=== PATIENT | female | born 1955 | race American Indian/Alaskan Native ===

== ENCOUNTER 2021-04-12 10:23 | Emergency (ER) | payer OTHER ==
[2021-04-12] MEDS ORDERED: SODIUM CHLORIDE 0.9% 1000 ML 1,000 ML IV ONE (11:19)
--- NOTE | 2021-04-12 11:21 | Emergency Department Report ---
- General Chief complaint: Weakness Stated complaint: INVOLUNTARY MOVEMENTS Time Seen by Provider: 04/12/21 11:07 Source: patient, EMS Mode of arrival: Stretcher Limitations: No Limitations - History of Present Illness Initial comments: 65-year-old female with history of hypertension hyperlipidemia brought in by EMS complaining of new onset symptoms when she woke up this morning. She reports that since waking up this morning she had severe lightheadedness and dizziness with disorientation and involuntary shaking of her head and extremities. Her last known well time was when she went to sleep at approximately 4 AM. During this episode she also felt extremely anxious. She denies room spinning dizziness however. She does report that she felt off balance. EMS reported t hat upon arrival, the patient's heart rate was in the 130s in sinus rhythm. Improved to 118 and then 81 once she arrived here in the emergency department. She says she has had episodes like this in the past and was diagnosed with panic attack. However, she reports that she feels better now but cannot seem to control her shaking/jerking movements of her head and extremities. She still feels slightly lightheaded and disoriented. She denies ever losing consciousness or hitting her head. She denies any fever/chills, headache, vision changes, neck pain, back pain, chest pain, cough, lower extremity pain/swelling, sensory changes, focal weakness, abdominal pain, nausea/vomiting, dysuria, or any other complaints. She denies use of any illicit substances and says her only medications are for blood pressure and hyperlipidemia. She states that she used to drink alcohol but has not had any alcohol in the last 2 months. - Related Data Previous Rx's Medication Instructions Recorded Last Taken Type Lipitor 40 mg PO DAILY #30 04/12/21 Unknown Rx Meclizine [Antivert] 12.5 mg PO BID PRN 8 Days #16 04/12/21 Unknown Rx tablet amLODIPine 10 mg PO DAILY #30 04/12/21 Unknown Rx Allergies Allergy/AdvReac Type Severity Reaction Status Date / Time No Known Allergies Allergy Verified 04/12/21 10:50 ED Review of Systems ROS: Stated complaint: INVOLUNTARY MOVEMENTS Other details as noted in HPI Constitutional: denies: chills, fever ENT: denies: ear pain, throat pain, congestion Respiratory: shortness of breath (initially but resolved). denies: cough, orthopnea Cardiovascular: denies: chest pain, syncope Gastrointestinal: denies: abdominal pain, nausea, vomiting Genitourinary: denies: dysuria, frequency Musculoskeletal: denies: back pain, myalgia Skin: denies: rash Neurological: confusion, other (feeling of being off-balance and dizzy). denies: headache, weakness, numbness Psychiatric: anxiety ED Past Medical Hx - Past Medical History Previous Medical History?: Yes Hx Heart Attack/AMI: Yes Additional medical history: Hyperlipidemia - Surgical History Past Surgical History?: Yes Additional Surgical History: hysterectomy - Social History Smoking Status: Never Smoker - Medications Home Medications: Home Medications Medication Instructions Recorded Confirmed Last Taken Type Lipitor 40 mg PO DAILY #30 04/12/21 Unknown Rx Meclizine [Antivert] 12.5 mg PO BID PRN 8 Days #16 04/12/21 Unknown Rx tablet amLODIPine 10 mg PO DAILY #30 04/12/21 Unknown Rx ED Physical Exam - General Limitations: No Limitations - Other Other exam information: GENERAL: Well developed and well nourished. No acute distress HEENT: Normocephalic. No obvious signs of trauma. Dry mucous membranes. EYES: Extraocular movements are intact. Pupils are equal round and reactive to light bilaterally NECK: Supple. Trachea is midline. LUNGS: Nonlabored breathing. Equal chest rise bilaterally. Clear to auscultation bilaterally. HEART/CARDIOVASCULAR: Regular rate and rhythm. No murmurs or rubs. VASCULAR: Cap refill < 2 seconds. No significant lower extremity edema ABDOMEN: Abdomen is soft and nondistended. There is no significant tenderness, guarding or rebound. SKIN: Skin is warm and dry NEURO: Patient is awake, alert, and oriented. She is seen involving her head and with jerking/shaking of her extremities particularly the bilateral upper extremities. 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 Normal motor and sensory exam throughout. Normal speech. There is significant dysmetria noted on kaqhip-utyl-jkcidy bilaterally. Normal lghm-wi-nsxg bilaterally. NIH stroke scale score 6 MUSCULOSKELETAL: No obvious deformities. No significant tenderness. Normal ROM throughout. BACK/SPINE: No midline tenderness or step-offs of the C/T/L spine. - Assessment Assessment Interval: Baseline - Level of Consciousness 1a. Level of Consciousness: alert/keenly responsive - LOC Questions 1b. LOC Questions: answers both correctly - LOC Command 1c. LOC Commands: performs tasks correctly - Best Gaze 2. Best Gaze: normal - Visual 3. Visual: no visual loss - Facial Palsy 4. Facial Palsy: normal symmetrical movement - Motor Arm 5a. Motor Arm Left: no drift 5b. Motor Arm Right: no drift - Motor Leg 6a. Motor Leg Left: no drift 6b. Motor Leg Right: no movement - Limb Ataxia 7. Limb Ataxia: present 2 limbs - Sensory 8. Sensory: normal - Best Language 9. Best Language: no aphasia - Dysarthria 10. Dysarthria: normal - Extinction and Inattention 11. Extinction/Inattention: no abnormality - Scoring Total Score: 6 Stroke Severity: Moderate Stroke ED Course Vital Signs 04/12/21 04/12/21 04/12/21 10:58 11:01 11:15 Temperature 98.2 F Pulse Rate 81 96 H Respiratory 15 18 Rate Blood Pressure 127/78 127/78 O2 Sat by Pulse 98 96 99 Oximetry 04/12/21 04/12/21 04/12/21 12:07 12:15 12:31 Temperature Pulse Rate 101 H 86 90 Respiratory 18 17 22 Rate Blood Pressure 132/81 132/81 137/74 O2 Sat by Pulse 99 100 99 Oximetry 04/12/21 04/12/21 12:45 12:46 Temperature Pulse Rate 98 H 86 Respiratory 19 Rate Blood Pressure 127/78 O2 Sat by Pulse 97 Oximetry ED Medical Decision Making - Lab Data Result diagrams: 04/12/21 11:59 04/12/21 11:59 Lab Results 04/12/21 04/12/21 04/12/21 Range/Units 11:16 11:59 11:59 WBC 4.9 (4.5-11.0) K/mm3 RBC 4.34 (3.65-5.03) M/mm3 Hgb 12.6 (10.1-14.3) gm/dl Hct 37.1 (30.3-42.9) % MCV 86 (79-97) fl MCH 29 (28-32) pg MCHC 34 (30-34) % RDW 14.4 (13.2-15.2) % Plt Count 301 (140-440) K/mm3 Lymph % (Auto) 30.3 (13.4-35.0) % [place] % (Auto) 8.2 H (0.0-7.3) % Eos % (Auto) 1.6 (0.0-4.3) % Baso % (Auto) 1.0 (0.0-1.8) % Lymph # (Auto) 1.5 (1.2-5.4) K/mm3 [place] # (Auto) 0.4 (0.0-0.8) K/mm3 Eos # (Auto) 0.1 (0.0-0.4) K/mm3 Baso # (Auto) 0.0 (0.0-0.1) K/mm3 Seg Neutrophils % 58.9 (40.0-70.0) % Seg Neutrophils # 2.9 (1.8-7.7) K/mm3 PT 12.4 (12.2-14.9) Sec. INR 0.88 (0.87-1.13) APTT 27.8 (24.2-36.6) Sec. Thrombin Time 17.8 (15.1-19.6) Sec. Sodium (137-145) mmol/L Potassium (3.6-5.0) mmol/L Chloride (98-107) mmol/L Carbon Dioxide (22-30) mmol/L Anion Gap mmol/L BUN (7-17) mg/dL Creatinine (0.6-1.2) mg/dL Estimated GFR ml/min BUN/Creatinine Ratio % Glucose (65-100) mg/dL POC Glucose 106 H (70-105) mg/dL Calcium (8.4-10.2) mg/dL Total Bilirubin (0.1-1.2) mg/dL AST (5-40) units/L ALT (7-56) units/L Alkaline Phosphatase (35-129) units/L Ammonia (25-60) umol/L Total Creatine Kinase (30-135) units/L CK-MB (CK-2) (0.0-4.0) ng/mL CK-MB (CK-2) Rel Index (0-4) Troponin T (0.00-0.029) ng/mL Total Protein (6.3-8.2) g/dL Albumin (3.9-5) g/dL Albumin/Globulin Ratio % Urine Color (Yellow) Urine Turbidity (Clear) Urine pH (5.0-7.0) Ur Specific [place] (1.003-1.030) Urine Protein (Negative) mg/dL Urine Glucose (UA) (Negative) mg/dL Urine Ketones (Negative) mg/dL Urine Blood (Negative) Urine Nitrite (Negative) Urine Bilirubin (Negative) Urine Urobilinogen (<2.0) mg/dL Ur Leukocyte Esterase (Negative) Urine WBC (Auto) (0.0-6.0) /HPF Urine RBC (Auto) (0.0-6.0) /HPF U Epithel Cells (Auto) (0-13.0) /HPF Urine Opiates Screen Urine Methadone Screen Ur Barbiturates Screen Ur Phencyclidine Scrn Ur Amphetamines Screen U Benzodiazepines Scrn Urine Cocaine Screen U Marijuana (THC) Screen Drugs of Abuse Note Plasma/Serum Alcohol (0-0.07) % 04/12/21 04/12/21 04/12/21 Range/Units 11:59 11:59 11:59 WBC (4.5-11.0) K/mm3 RBC (3.65-5.03) M/mm3 Hgb (10.1-14.3) gm/dl Hct (30.3-42.9) % MCV (79-97) fl MCH (28-32) pg MCHC (30-34) % RDW (13.2-15.2) % Plt Count (140-440) K/mm3 Lymph % (Auto) (13.4-35.0) % [place] % (Auto) (0.0-7.3) % Eos % (Auto) (0.0-4.3) % Baso % (Auto) (0.0-1.8) % Lymph # (Auto) (1.2-5.4) K/mm3 [place] # (Auto) (0.0-0.8) K/mm3 Eos # (Auto) (0.0-0.4) K/mm3 Baso # (Auto) (0.0-0.1) K/mm3 Seg Neutrophils % (40.0-70.0) % Seg Neutrophils # (1.8-7.7) K/mm3 PT (12.2-14.9) Sec. INR (0.87-1.13) APTT (24.2-36.6) Sec. Thrombin Time (15.1-19.6) Sec. Sodium 136 L (137-145) mmol/L Potassium 3.8 (3.6-5.0) mmol/L Chloride 101.0 (98-107) mmol/L Carbon Dioxide 23 (22-30) mmol/L Anion Gap 16 mmol/L BUN 8 (7-17) mg/dL Creatinine 0.6 (0.6-1.2) mg/dL Estimated GFR > 60 ml/min BUN/Creatinine Ratio 13 % Glucose 103 H (65-100) mg/dL POC Glucose (70-105) mg/dL Calcium 9.4 (8.4-10.2) mg/dL Total Bilirubin 0.30 (0.1-1.2) mg/dL AST 14 (5-40) units/L ALT 9 (7-56) units/L Alkaline Phosphatase 69 (35-129) units/L Ammonia 28.0 (25-60) umol/L Total Creatine Kinase 107 (30-135) units/L CK-MB (CK-2) < 1.0 (0.0-4.0) ng/mL CK-MB (CK-2) Rel Index 0.9 (0-4) Troponin T < 0.010 (0.00-0.029) ng/mL Total Protein 7.3 (6.3-8.2) g/dL Albumin 4.0 (3.9-5) g/dL Albumin/Globulin Ratio 1.2 % Urine Color (Yellow) Urine Turbidity (Clear) Urine pH (5.0-7.0) Ur Specific [place] (1.003-1.030) Urine Protein (Negative) mg/dL Urine Glucose (UA) (Negative) mg/dL Urine Ketones (Negative) mg/dL Urine Blood (Negative) Urine Nitrite (Negative) Urine Bilirubin (Negative) Urine Urobilinogen (<2.0) mg/dL Ur Leukocyte Esterase (Negative) Urine WBC (Auto) (0.0-6.0) /HPF Urine RBC (Auto) (0.0-6.0) /HPF U Epithel Cells (Auto) (0-13.0) /HPF Urine Opiates Screen Urine Methadone Screen Ur Barbiturates Screen Ur Phencyclidine Scrn Ur Amphetamines Screen U Benzodiazepines Scrn Urine Cocaine Screen U Marijuana (THC) Screen Drugs of Abuse Note Plasma/Serum Alcohol < 0.01 (0-0.07) % 04/12/21 04/12/21 Range/Units 12:46 12:46 WBC (4.5-11.0) K/mm3 RBC (3.65-5.03) M/mm3 Hgb (10.1-14.3) gm/dl Hct (30.3-42.9) % MCV (79-97) fl MCH (28-32) pg MCHC (30-34) % RDW (13.2-15.2) % Plt Count (140-440) K/mm3 Lymph % (Auto) (13.4-35.0) % [place] % (Auto) (0.0-7.3) % Eos % (Auto) (0.0-4.3) % Baso % (Auto) (0.0-1.8) % Lymph # (Auto) (1.2-5.4) K/mm3 [place] # (Auto) (0.0-0.8) K/mm3 Eos # (Auto) (0.0-0.4) K/mm3 Baso # (Auto) (0.0-0.1) K/mm3 Seg Neutrophils % (40.0-70.0) % Seg Neutrophils # (1.8-7.7) K/mm3 PT (12.2-14.9) Sec. INR (0.87-1.13) APTT (24.2-36.6) Sec. Thrombin Time (15.1-19.6) Sec. Sodium (137-145) mmol/L Potassium (3.6-5.0) mmol/L Chloride (98-107) mmol/L Carbon Dioxide (22-30) mmol/L Anion Gap mmol/L BUN (7-17) mg/dL Creatinine (0.6-1.2) mg/dL Estimated GFR ml/min BUN/Creatinine Ratio % Glucose (65-100) mg/dL POC Glucose (70-105) mg/dL Calcium (8.4-10.2) mg/dL Total Bilirubin (0.1-1.2) mg/dL AST (5-40) units/L ALT (7-56) units/L Alkaline Phosphatase (35-129) units/L Ammonia (25-60) umol/L Total Creatine Kinase (30-135) units/L CK-MB (CK-2) (0.0-4.0) ng/mL CK-MB (CK-2) Rel Index (0-4) Troponin T (0.00-0.029) ng/mL Total Protein (6.3-8.2) g/dL Albumin (3.9-5) g/dL Albumin/Globulin Ratio % Urine Color Colorless (Yellow) Urine Turbidity Clear (Clear) Urine pH 7.0 (5.0-7.0) Ur Specific [place] 1.032 H (1.003-1.030) Urine Protein 30 mg/dl (Negative) mg/dL Urine Glucose (UA) Neg (Negative) mg/dL Urine Ketones Neg (Negative) mg/dL Urine Blood Neg (Negative) Urine Nitrite Neg (Negative) Urine Bilirubin Neg (Negative) Urine Urobilinogen < 2.0 (<2.0) mg/dL Ur Leukocyte Esterase Neg (Negative) Urine WBC (Auto) < 1.0 (0.0-6.0) /HPF Urine RBC (Auto) 1.0 (0.0-6.0) /HPF U Epithel Cells (Auto) 1.0 (0-13.0) /HPF Urine Opiates Screen Negative Urine Methadone Screen Negative Ur Barbiturates Screen Negative Ur Phencyclidine Scrn Negative Ur Amphetamines Screen Negative U Benzodiazepines Scrn Negative Urine Cocaine Screen Negative U Marijuana (THC) Screen Negative Drugs of Abuse Note Disclamer Plasma/Serum Alcohol (0-0.07) % - EKG Data -: EKG Interpreted by Nd - EKG Data 04/12/21 12:25 Normal sinus rhythm. Normal axis. Normal intervals. No significant ST segment or T wave abnormalities. - Radiology Data NONENHANCED CT SCAN OF THE BRAIN: INDICATION: CODE STROKE SHAKING Stroke symptoms #[id number]. TECHNIQUE: Routine CT head without contrast. Sagittal and coronal reformatted images were obtained. All CT scans at this location are performed using CT dose reduction for ALARA by means of automated exposure control. COMPARISON: None. FINDINGS: BRAIN / INTRACRANIAL CONTENTS: Hemorr ameena: No intracranial hemorrhage; no subarachnoid hemorrhage Stroke mimics: No subdural or epidural hematoma or space taking lesion Acute/subacute territorial infarction: Davis-white matter interface: No blurring; normal Insular cortex: Normal Basal ganglia: Normal Wedge shaped parenchymal low density area: Not present Cortical sulci: Not effaced Lacunar infarctions: None Vasculopathy: Dense middle cerebral artery sign: Not present Internal carotid artery terminus: Normal Basilar artery: Normal Middle cerebral artery branches in the sylvian fissure (Dot sign): Normal Calcified embolus: Not present ASPECT score: 10 Chronic lesions: None White matter: Craniocervical junction: No significant abnormality Orbits: No significant abnormality Paranasal sinuses/mastoids: No significant abnormality Additional findings: None IMPRESSION: No intracerebral hemorrhage or stroke mimics No acute/subacute infarction This exam was performed as part of a code stroke protocol. The exam was completed at [facility] on 04/12/2021 10:36 AM. The exam was reviewed at 10:42 AM and ER physician was notified at 10:45 AM. CTA HEAD WITH CONTRAST HISTORY: Stroke COMPARISON: None. TECHNIQUE: Routine non-contrast CT Head, CTA of the head and post-contrast CT Head are performed. 3-D/MIP reformats postprocessed. All CT scans at this location are performed using CT dose reduction for ALARA by means of automated exposure control CONTRAST: 100 ml of Omnipaque 350 FINDINGS: CTA Head: Intracranial vertebral arteries: No significant abnormality. Basilar artery: No significant abnormality. Posterior cerebral arteries: No significant abnormality. Intracranial internal carotid arteries: No significant abnormality. Anterior cerebral arteries: No significant abnormality. Middle cerebral arteries: No significant abnormality. Dural venous sinuses:Not optimally opacified. No s ignificant abnormality. Additional findings: None. IMPRESSION: 1. No significant abnormality. Signer Name: Vannessa Loyd MD Signed: 04/12/2021 11:13 AM Workstation Name: [id number] CTA NECK WITH CONTRAST HISTORY: Stroke COMPARISON: None. TECHNIQUE: Routine CTA of the neck was performed. 3-D/MIP reformats were postprocessed. Percentage stenosis is determined by direct quantitative measurements of diseased internal carotid artery diameter compared with normal distal internal carotid artery reference segments or by criteria similar to NASCET where applicable.All CT scans at this location are performed using CT dose reduction for ALARA by means of automated exposure control CONTRAST: 100 ml of Omnipaque 350 FINDINGS: Aortic arch: No significant abnormality. Cervical vertebral arteries: No significant abnormality. Common carotid arteries: No significant abnormality. Carotid bifurcations: Normal Cervical internal carotid arteries: No significant abnormality. Additional findings: None. IMPRESSION: 1. No significant abnormality. Signer Name: Vannessa Loyd MD Signed: 04/12/2021 11:11 AM Workstation Name: [id number] CHEST 1 VIEW INDICATION: stroke COMPARISON: FINDINGS: SUPPORT DEVICES: None. HEART / MEDIASTINUM: No significant abnormality. LUNGS / PLEURA: No significant pulmonary or pleural abnormality. No pneumothorax. ADDITIONAL FINDINGS: IMPRESSION: 1. No acute cardiopulmonary disease Signer Name: Jose Antonio Thrasher MD Signed: 04/12/2021 11:03 AM Workstation Name: [id number] - Medical Decision Making 65-year-old female with history of hypertension hyperlipidemia brought in by EMS complaining of new onset symptoms when she woke up this morning. She reports that since waking up this morning she had severe lightheadedness and dizziness with disorientation and involuntary shaking of her head and extremities as well as anxiety and feeliung off-balance. Her last known well time was when she went to sleep at approximately 4 AM. She says she has had episodes like this in the past and was diagnosed with panic attack. However, she reports that she feels better now but cannot seem to control her shaking/jerking movements of her head and extremities. She is A and O x3. Lung sounds are clear. Heart sounds are normal. No abdominal tenderness. She does have slightly dry mucous membranes. Neurologic exam reveals dysmetria of bilateral upper extremities on nodumq-msnz-sbleem testing. She has normal cfdm-wv-nqeo bilaterally. There is no focal weakness or sensory changes on my exam. Her NIH stroke scale score is 6. Initial blood glucose taken in the emergency room was 106. Because of the signs seen on neurologic exam as noted, I initiated stroke alert and ordered full set of labs, chest x-ray, Noncon CT of the head as well as CT angiogram of the head and neck to evaluate for evidence of large vessel occlusion. I have also ordered 1 L of IV fluids given her dry mucous membranes. At 1146 I received a call from the radiologist stating that the Noncon CT of the head is negative for intracranial hemorrhage or any other obvious acute findings. At 1158 I spoke over the phone with Dr. Hernandez of teleneurology who has examined the patient. She stated that she detected only slight dysmetria of the bilateral upper extremities although it is difficult to discern on digital exam. She states that given the patient's symptoms, she would recommend admission for MRI specifically to rule out posterior circulation stroke. Also recommends administering aspirin at this time which I will order. We will follow up the remaining studies including CTA of the head and neck and continue to monitor the patient closely. CTA of the head and neck reveals no evidence of large vessel occlusion. On repeat assessment again at 12:30 PM, the patient reports that her symptoms are unchanged. I discussed with her the results of her CT scans and the fact that labs are still pending. Labs have resulted and reveal no significant leukocytosis or anemia. There is no significant electrolyte abnormality and kidney function is normal. Troponin is negative. I spoke with the hospitalist, Dr. Bridges, who states he will come evaluate the patient himself to determine the need for admission versus discha rge Critical care attestation.: If time is entered above; I have spent that time in minutes in the direct care of this critically ill patient, excluding procedure time. ED Disposition Clinical Impression: Dizziness, Disequilibrium Disposition: DC09 OP ADMIT IP TO THIS HOSP Is pt being admited?: Yes Condition: Stable Prescriptions: amLODIPine 10 mg PO DAILY #30 Meclizine [Antivert] 12.5 mg PO BID PRN 8 Days #16 tablet PRN Reason: Vertigo Lipitor 40 mg PO DAILY #30
--- NOTE | 2021-04-12 11:50 | Cat Scan Report ---
NONENHANCED CT SCAN OF THE BRAIN: INDICATION: CODE STROKE SHAKING Stroke symptoms #[id number]. TECHNIQUE: Routine CT head without contrast. Sagittal and coronal reformatted images were obtained. A ll CT scans at this location are performed using CT dose reduction for ALARA by means of automated ex posure control. COMPARISON: None. FINDINGS: BRAIN / INTRACRANIAL CONTENTS: Hemorrhage: No intracranial hemorrhage; no subarachnoid hemorrhage Stroke mimics: No subdural or epidural hematoma or space taking lesion Acute/subacute territorial infarction: Davis-white matter interface: No blurring; normal Insular cortex: Normal Basal ganglia: Normal Wedge shaped parenchymal low density area: Not present Cortical sulci: Not effaced Lacunar infarctions: None Vasculopathy: Dense middle cerebral artery sign: Not present Internal carotid artery terminus: Normal Basilar artery: Normal Middle cerebral artery branches in the sylvian fissure (Dot sign): Normal Calcified embolus: Not present ASPECT score: 10 Chronic lesions: None White matter: Craniocervical junction: No significant abnormality Orbits: No significant abnormality Paranasal sinuses/mastoids: No significant abnormality Additional findings: None IMPRESSION: No intracerebral hemorrhage or stroke mimics No acute/subacute infarction This exam was performed as part of a code stroke protocol. The exam was completed at [facility] on 04/12/2021 10:36 AM. The exam was reviewed at 10:42 AM and ER physician was notifi ed at 10:45 AM. Signer Name: Vannessa Loyd MD Signed: 04/12/2021 11:46 AM Workstation Name: [email or web address]
[2021-04-12] MEDS ORDERED: ASPIRIN 325 MG TAB PO ONE (11:58)
--- NOTE | 2021-04-12 12:07 | XRay Report ---
CHEST 1 VIEW INDICATION: stroke COMPARISON: FINDINGS: SUPPORT DEVICES: None. HEART / MEDIASTINUM: No significant abnormality. LUNGS / PLEURA: No significant pulmonary or pleural abnormality. No pneumothorax. ADDITIONAL FINDINGS: IMPRESSION: 1. No acute cardiopulmonary disease Signer Name: Jose Antonio Thrasher MD Signed: 04/12/2021 12:03 PM Workstation Name: [id number]
[2021-04-12 12:15] LABS: Eosinophils # (Auto) 0.1 K/mm3 (0.0-0.4); Eosinophils % (Auto) 1.6 % (0.0-4.3); Hematocrit 37.1 % (30.3-42.9); Hemoglobin 12.6 gm/dl (10.1-14.3); Lymphocytes # (Auto) 1.5 K/mm3 (1.2-5.4); Lymphocytes % (Auto) 30.3 % (13.4-35.0); Mean Corpuscular HGB Conc 34 % (30-34); Mean Corpuscular Volume 86 fl (79-97); Monocytes # (Auto) 0.4 K/mm3 (0.0-0.8); Monocytes % (Auto) 8.2 % (0.0-7.3); Platelet Count 301 K/mm3 (140-440); Red Blood Count 4.34 M/mm3 (3.65-5.03); Red Cell Distribution Width 14.4 % (13.2-15.2)
--- NOTE | 2021-04-12 12:15 | Cat Scan Report ---
CTA NECK WITH CONTRAST HISTORY: Stroke COMPARISON: None. TECHNIQUE: Routine CTA of the neck was performed. 3-D/MIP reformats were postprocessed. Percentage s tenosis is determined by direct quantitative measurements of diseased internal carotid artery diamete r compared with normal distal internal carotid artery reference segments or by criteria similar to NA SCET where applicable.All CT scans at this location are performed using CT dose reduction for ALARA b y means of automated exposure control CONTRAST: 100 ml of Omnipaque 350 FINDINGS: Aortic arch: No significant abnormality. Cervical vertebral arteries: No significant abnormality. Common carotid arteries: No significant abnormality. Carotid bifurcations: Normal Cervical internal carotid arteries: No significant abnormality. Additional findings: None. IMPRESSION: 1. No significant abnormality. Signer Name: Vannessa Loyd MD Signed: 04/12/2021 12:11 PM Workstation Name: [id number]
--- NOTE | 2021-04-12 12:17 | Cat Scan Report ---
CTA HEAD WITH CONTRAST HISTORY: Stroke COMPARISON: None. TECHNIQUE: Routine non-contrast CT Head, CTA of the head and post-contrast CT Head are performed. 3-D /MIP reformats postprocessed. All CT scans at this location are performed using CT dose reduction for ALARA by means of automated exposure control CONTRAST: 100 ml of Omnipaque 350 FINDINGS: CTA Head: Intracranial vertebral arteries: No significant abnormality. Basilar artery: No significant abnormality. Posterior cerebral arteries: No significant abnormality. Intracranial internal carotid arteries: No significant abnormality. Anterior cerebral arteries: No significant abnormality. Middle cerebral arteries: No significant abnormality. Dural venous sinuses:Not optimally opacified. No significant abnormality. Additional findings: None. IMPRESSION: 1. No significant abnormality. Signer Name: Vannessa Loyd MD Signed: 04/12/2021 12:13 PM Workstation Name: [id number]
[2021-04-12 12:27] LABS: INR 0.88 (0.87-1.13)
[2021-04-12 12:28] LABS: Partial Thromboplastin Time 27.8 Sec. (24.2-36.6); Thrombin Time 17.8 Sec. (15.1-19.6)
[2021-04-12 12:35] LABS: Alanine Aminotransferase 9 units/L (7-56); Blood Urea Nitrogen 8 mg/dL (7-17); Calcium 9.4 mg/dL (8.4-10.2); Hemolysis Index 7
[2021-04-12 12:37] LABS: BUN/Creatinine Ratio 13; Creatine Kinase MB < 1.0 ng/mL (0.0-4.0)
[2021-04-12 12:53] LABS: Bilirubin,Urine NEG (Negative); Blood,Urine NEG (Negative); Color,Urine Colorless (Yellow); Urobilinogen,Urine < 2.0 mg/dL (<2.0); WBC,Urine < 1.0 /HPF (0.0-6.0)
[2021-04-12 13:02] LABS: Amphetamine Screen,Urine Negative; Benzodiazepines Screen,Urine Negative; Cannabinoid Screen,Urine Negative; Cocaine Screen,Urine Negative; Methadone Screen,Urine Negative; Opiate Screen,Urine Negative
--- NOTE | 2021-04-12 14:35 | Event Note ---
Date: 04/12/21 62 [id number] female with history of hypertension and hyperlipidemia comes in for severe dizziness and unsteadiness with walking since a.m. Patient did not have any nausea or vomiting. In the ER over the last couple hours patient became better able to walk is by her blood pressures under control all the labs are normal discharge diagnoses Acute labyrinthitis Patient on meclizine 12.5 mg twice a day and patient also to follow-up with her PCP thank you
--- NOTE | 2021-04-12 15:01 | Emergency Department Report ---
Blank Doc - Documentation Documentation: [facility] Consult Note # Demographics Consult Type: Acute Stroke Level 2 (4.5-24 hrs) Patient Location: Emergency Room First Name: Chloe Last Name: Sha Date of : 1955 Age: 65 Gender: Female Time of Initial Page ( Time): 04/12/2021, 11:22 Time of Return Call ( Time): 04/12/2021, 11:22 # HPI History: 65yo F woke with dizziness and lightheadedness. noted to have some dysmetria on exam. last well last night Last Known Normal: I have collected independent history specific to time last normal or last known well. We have collaborated with the provider and at this time, we have the most current timeline with the information that is available. # Scores Time of exam and NIHSS ( Time): 04/12/2021, 11:32 Level of Consciousness 1a: [0] = Alert; keenly responsive LOC Questions 1b: [0] = Answers both questions correctly LOC Commands 1c: [0] = Performs both tasks correctly Best Gaze 2: [0] = Normal Visual 3: [0] = No visual loss Facial Palsy 4: [0] = Normal symmetrical movements Motor Arm Left 5a: [0] = No drift Motor Arm Right 5b: [0] = No drift Motor Leg Left 6a: [0] = No drift Motor Leg Right 6b: [0] = No drift Limb Ataxia 7: [1] = Present in one limb Sensory 8: [0] = Normal Best Language 9: [0] = No aphasia Dysarthria 10: [0] = Normal Extinction and Inattention 11: [0] = No abnormality NIHSS Total: 1 # Assessment Impression: Vertigo # Plan Thrombolytic/Intervention: NOT IV Thrombolytic or IA Intervention Thrombolytic Exclusion: > 4.5 hours Intraarterial Exclusion: clinically consistent with small vessel disease Imaging: (urgency: STAT): CT Angiogram Head and CT Angiogram Neck AND call back with results if abnormal Imaging: (urgency: routine): MRI Brain with AND without contrast Other: would not pursue stroke work-up if MRI is negative I have discussed my recommendations with the referring provider Additional Recommendations: Further work-up based on MRI results # Logistics Telemedicine: Interactive 2 way audio and visual telecommunication technology was utilized during this visit
[2021-04-12 16:54] VITALS: BP 126/94
--- NOTE | 2021-04-16 09:40 | Electrocardiograph Report ---
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
== END 2021-04-12 16:58 | disposition admitted as inpatient to this hospital (09) ==
LOC: ED 10:23
DX: R42 Dizziness and giddiness (principal); I10 Essential (primary) hypertension; E78.5 Hyperlipidemia, unspecified; I25.2 Old myocardial infarction; Z79.899 Other long term (current) drug therapy; Z90.710 Acquired absence of both cervix and uterus
CPT/HCPCS: 36415; 70450; 70496; 70498; 71045; 80053; 80307; 81001; 82140; 82550; 82553; 82962; 84484; 85025; 85610; 85670; 85730; 93005; 96360; 96361; 99285; J7030; Q9967; 80320; G0480